=== PATIENT | female | born 1950 | race Caucasian/White ===

== ENCOUNTER 2018-03-26 19:06 | Emergency (ER) | payer OTHER ==
[2018-03-26] MEDS ORDERED: KETOROLAC 30 MG/1 ML SDV IVP ONE (19:47)
[2018-03-26] MEDS ORDERED: METOCLOPRAMIDE 10 MG/2 ML VIAL IVP ONE (19:47)
[2018-03-26] MEDS ORDERED: NS 1,000 ML IV ONE (20:01)
--- NOTE | 2018-03-26 20:11 | EDPHY ---
H & P Stated Complaint: states started sulfa 03/24, took ropinrole and montlukast 03/25, vomiting 0345 Time Seen by Provider: 03/26/18 19:33 HPI/ROS: This patient started 2 new medications yesterday took them at 11:00 p.m. Last night-row pen oral for restless leg syndrome and montelukast sodium for allergies. She subsequently developed nausea and vomiting several episodes through the night. Starting at around 3:45 a.m. She developed by temporal headache achy in nature at times throbbing when she bends forward associated with photophobia, 9/10 in intensity similar to her migraine headaches though no or as yet today. Her typical migraine aura is scintillating scotoma. She has had none today. Friend of hers brought her in for evaluation and she reports that she has difficulty tolerating p.o. Fluids due to ongoing nausea and vomiting. ROS: Constitutional: No fevers. No chills. No fatigue. HEENT: Coryza she attributes to seasonal allergies. No sinus pain. No sore throat. No ear pain. No recent head trauma Neuro: No focal weakness, numbness or tingling. No vision changes. No confusion. Pulmonary: No shortness of breath or cough. Cardiovascular: No chest pain. No lightheadedness. GI: No abdominal pain. Normal bowel movements : No urinary symptoms Integumentary: No skin rash. No pallor. No diaphoresis. Complete review of symptoms otherwise negative Source: Patient Exam Limitations: No limitations - Medical/Surgical History Hx Asthma: No Hx Chronic Respiratory Disease: No Hx Diabetes: No Hx Cardiac Disease: No Hx Renal Disease: No Hx Cirrhosis: No Hx Alcoholism: No Hx HIV/AIDS: No Hx Splenectomy or Spleen Trauma: No Other PMH: ALLERGIES, migraines,restless leg symdrome,hyperlipidemia. Surg-c- section,acl and mcl repair - Social History Smoking Status: Never smoked Alcohol Use: Rarely Drug Use: None - Physical Exam Exam: Physical exam: Vital signs are normal General: Patient is in no acute distress. HEENT: Is no external evidence of trauma on exam. Eyes: Pupils are equal and reactive to light. Extraocular motions are intact. Optic fundi: Clear with no papilledema or hemorrhage. Nose atraumatic. Ears: Clear bilaterally with no hemotympanum. Oropharynx: No dental trauma or malocclusion. No intraoral lacerations. Eyes: Pupils are equal and reactive to light. Extraocular motions are intact. Optic fundi: Clear with no papilledema or hemorrhage. Lungs: Clear to auscultation bilaterally Neck: Supple no meningismus. Cardiac: Regular rate and rhythm no murmur gallop or rub. Abdomen: Soft nontender no organomegaly Neuro: GCS of 15. Cranial nerves II through XII intact. Cerebellar exam is normal as judged by symmetric rapid hand movements bilaterally. No pronator drift. No sensory or motor deficits are appreciated. Initial differential diagnosis: Migraine, tension headache, [employer] lesion, intracranial bleed Constitutional: Initial Vital Signs Temperature (C) 36.6 C 03/26/18 19:24 Heart Rate 84 03/26/18 19:24 Respiratory Rate 16 03/26/18 19:24 Blood Pressure 145/92 H 03/26/18 19:24 O2 Sat (%) 95 03/26/18 19:24 O2 Delivery Mode Room Air Allergies/Adverse Reactions: No Known Allergies Allergy (Verified 03/26/18 19:21) Home Medications: Medication Instructions Recorded Montelukast Sodium 03/26/18 Ropinirole HCl 2 mg 03/26/18 Sulfamethox/Tmp 800/160 mg 03/26/18 Medical Decision Making ED Course/Re-evaluation: IV normal saline bolus Reglan, Toradol, Benadryl IV with relief of headache down to mild intensity. Her nausea was also controlled she tolerated p.o. Fluids without emesis. Studies: CBC is normal, basic metabolic panel normal, urinalysis normal Patient tolerated p.o. Bactrim here that she is taking for UTI after antiemetics without emesis. Discussion: Patient presents with vomiting likely attributable to a side effect from her new medication. Explain that viral illness or food intolerance is also possibility the patient is unwilling to continue with her new prescriptions. She will proceed home with plan of rest, and completing her Bactrim course for her UTI. No evidence tonight of pyelonephritis, metabolic disarray or other complicating factors. - Data Points Laboratory Results: Laboratory Results 03/26/18 17:55 03/26/18 19:55 Medications Given: Discontinued Medications Diphenhydramine HCl (Benadryl Injection) 25 mg IVP EDNOW ONE Stop: 03/26/18 19:48 Last Admin: 03/26/18 20:09 Dose: 25 mg Sodium Chloride (Ns) 1,000 mls @ 0 mls/hr IV ONCE ONE PRN Reason: Wide Open Stop: 03/26/18 20:02 Last Admin: 03/26/18 20:00 Dose: 1,000 mls Ketorolac Tromethamine (Toradol) 30 mg IVP EDNOW ONE Stop: 03/26/18 19:48 Last Admin: 03/26/18 21:03 Dose: 30 mg Metoclopramide HCl (Reglan Injection) 10 mg IVP EDNOW ONE Stop: 03/26/18 19:48 Last Admin: 03/26/18 20:12 Dose: 10 mg Ondansetron HCl (Zofran Odt 4 Mg Prepack#2) 1 btl TAKEHOME EDNOW ONE Stop: 03/26/18 21:01 Last Admin: 03/26/18 21:26 Dose: 1 btl Departure - Departure Disposition: Home, Routine, Self-Care Clinical Impression: Migraine, Vomiting Condition: Good Instructions: Ondansetron (By mouth), Migraine Headache (ED), Acute Nausea and Vomiting (ED) Additional Instructions: Diagnosis: 1. Migraine 2. Vomiting You received IV Reglan, Benadryl and Toradol in the emergency department for headache. Plan: Stop the medications that you started Home to rest Drink plenty fluids Tylenol in addition if needed for any lingering headache. Zofran (under tongue) for any nausea or vomiting at home Follow-up with primary care physician for any ongoing symptoms Referrals: Taylor Salamanca MD [Primary Care Provider] - As per Instructions
[2018-03-26] MEDS ORDERED: ONDANSETRON 4MG PREPACK#2 BTL TAKEHOME ONE (21:00)
[2018-03-26 21:29] VITALS: BP 120/73
[2018-03-26 21:41] LABS: PLATELET COUNT 281 10^3/uL (150-400)
== END 2018-03-26 21:27 | disposition home or self-care (01) ==
LOC: CED 19:06
DX: G43.909 Migraine, unspecified, not intractable, without status migrainosus (principal); R11.10 Vomiting, unspecified
CPT/HCPCS: 96361; 96374; 96375; 99284; J1200; J1885; J2765; 80048-PO